=== PATIENT | female | born 1990 | race Caucasian/White ===

== ENCOUNTER 2016-12-17 19:02 | Emergency (ER) | payer SELFPAY ==
[2016-12-17 19:25] VITALS: BP 128/73; PULSE 95; TEMP 98.5; BMI 41.1
--- NOTE | 2016-12-17 20:01 | PDOC ---
History of Present Illness - General History Source: Patient Exam Limitations: No Limitations - History of Present Illness Initial Comments: 12/17/16 20:08 The patient is a 26 year old female with no significant past medical history who presents to the ED for multiple complaints. Patient reports 1 day of generalized numbness including intermittent numbness to her tongue that also feels dry. She reports pain and discomfort to her soles bilaterally. Patient has complaints of headache and dizziness. Denies any urinary/bowel incontinence , slurred speech, or facial droop. Patient reports generalized malaise and yesterday she had some generalized weakness while driving and had to tie puller. She reports a subjective fever 3 days ago that resolved on its own and sometimes has chills. States she has a family h/o of diabetes and was once told that her blood sugar was elevated, but never followed up. Denies chance of being . Denies any sick contacts or recent travels. The patient denies diaphoresis, cough, SOB, chest pain, and palpitations. The patient denies abdominal pain, nausea, vomiting, and diarrhea. Allergies: NKDA Social History: No alcohol, tobacco, or drug use reported. Past Surgical History: appendectomy PCP: None reported <Naty Aleman - Last Filed: 12/17/16 20:08> - General History Source: Patient <HannahSancho - Last Filed: 12/17/16 22:11> - General Chief Complaint: CVA/TIA Stated Complaint: DIZZINESS Time Seen by Provider: 12/17/16 19:55 Past History <Naty Aleman - Last Filed: 12/17/16 20:08> - Past Medical History Other medical history: family hx of DM (both sides) - Surgical History Appendectomy: Yes - Psycho/Social/Smoking Cessation Hx Suicidal Ideation: No Smoking History: Current every day smoker Information on smoking cessation initiated: No <Sancho Monetro - Last Filed: 12/17/16 22:11> - Past Medical History Allergies/Adverse Reactions: Allergies Allergy/AdvReac Type Severity Reaction Status Date / Time No Known Allergies Allergy Verified 12/17/16 19:19 Home Medications: Ambulatory Orders Levofloxacin [Levaquin -] 500 mg PO DAILY #7 tablet 12/17/16 Review of Systems - Review of Systems Able to Perform ROS?: Yes Comments:: 12/17/16 20:08 CONSTITUTIONAL: +fever, chills, generalized malaise, generalized weakness Absent: no fatigue EYES: Absent: visual changes ENT: +tongue numbness Absent: ear pain, no sore throat CARDIOVASCULAR: Absent: chest pain, no palpitations RESPIRATORY: Absent: cough, no SOB GI: Absent: abdominal pain, no nausea, no vomiting, no constipation, no diarrhea GENITOURINARY: Absent: dysuria, no frequency, no hematuria MUSCULOSKELETAL: +pain/discomfort to bilateral soles Absent: back pain, no arthralgia SKIN: Absent: rash NEURO: +headache, dizziness, generalized numbness <LoveNaty - Last Filed: 12/17/16 20:08> *Physical Exam - Vital Signs Last Vital Signs Temp Pulse Resp BP Pulse Ox 98.5 F 95 H 16 128/73 98 12/17/16 19:19 12/17/16 19:19 12/17/16 19:19 12/17/16 19:19 12/17/16 19:19 - Physical Exam Comments: 12/17/16 20:08 GENERAL: Well-appearing, well-nourished. No apparent distress. HEENT: Normocephalic, atraumatic. PERRL, EOM intact. CARDIOVASCULAR: Normal S1, S2. Regular rate and rhythm. PULMONARY: Clear to auscultation bilaterally. ABDOMEN: Soft, non-distended, non-tender. EXTREMITIES: Normal ROM in all four extremities. No gross deformities. SKIN: Warm, dry. No rash NEUROLOGICAL: No focal neurological deficits. <Naty Aleman - Last Filed: 12/17/16 20:08> - Vital Signs Last Vital Signs Temp Pulse Resp BP Pulse Ox 98.5 F 95 H 16 128/73 98 12/17/16 19:19 12/17/16 19:19 12/17/16 19:19 12/17/16 19:19 12/17/16 19:19 <Sancho Montero - Last Filed: 12/17/16 22:11> ED Treatment Course - LABORATORY CBC & Chemistry Diagram: 12/17/16 20:15 12/17/16 20:15 <Sancho Montero - Last Filed: 12/17/16 22:11> Medical Decision Making - Medical Decision Making 12/17/16 22:09 Dr. Montero: The scribe's documentation has been prepared under my direction and personally reviewed by me in its entirery. I confirm that the note above accurately reflects all work, treatment, procedures, and medical decision making performed by me.q <Sancho Montero - Last Filed: 12/17/16 22:11> *DC/Admit/Observation/Transfer - Attestations Scribe Attestion: 12/17/16 20:08 Documentation prepared by Naty Aleman, acting as medical instrument technician for Sancho Montero MD/DO. <Naty Aleman - Last Filed: 12/17/16 20:08> - Discharge Dispostion Admit: No <Sancho Montero - Last Filed: 12/17/16 22:11> Diagnosis at time of Disposition: Hyperglycemia, UTI (urinary tract infection) - Discharge Dispostion Disposition: HOME Condition at time of disposition: Stable - Prescriptions Prescriptions: Levofloxacin [Levaquin -] 500 mg PO DAILY #7 tablet - Referrals Referrals: Bella Silav MD [Staff Physician] - - Patient Instructions Printed Discharge Instructions: DI for Urinary Tract Infection (UTI), DI for Hyperglycemia -- Adult Additional Instructions: Please follow up with the doctor you have been referred to for evaluation for your suger
[2016-12-17 20:24] LABS: BASOPHIL 0.4 % (0-2.0); EOSINOPHIL 3.7 % (0-4.5); MCH 27.7 pg (25.7-33.7); MCHC 32.5 g/dl (32.0-36.0); MEAN CELL VOLUME 85.2 fl (80-96); MEAN PLT VOLUME 10.2 fl (7.5-11.1); NEUTROPHILS 64.1 % (42.8-82.8); PLATELET COUNT 230 K/MM3 (134-434); RDW 13.3 % (11.6-15.6); WHITE BLOOD COUNT 9.6 K/mm3 (4.0-10.0)
[2016-12-17 20:43] LABS: INR 1.02 (0.82-1.09); PROTHROMBIN TIME (PATIENT) 11.2 SEC (9.98-11.88)
[2016-12-17 21:10] LABS: URINE APPEARANCE CLOUDY; URINE BILIRUBIN NEGATIVE (NEGATIVE); URINE BLOOD NEGATIVE (NEGATIVE); URINE COLOR LTYELLOW; URINE GLUCOSE (UA) 3+ (NEGATIVE); URINE KETONE TRACE (NEGATIVE); URINE NITRITE NEGATIVE (NEGATIVE); URINE PROTEIN NEGATIVE (NEGATIVE); URINE UROBILINOGEN NEGATIVE E.U./dl (0.2-1.0)
[2016-12-17 21:15] LABS: ALBUMIN 3.6 g/dl (3.4-5.0); ANION GAP 9 (8-16); BILIRUBIN,TOTAL 0.3 mg/dL (0.2-1.0); CALCIUM 8.8 mg/dL (8.5-10.1); CO2 27 mmol/L (21-32); COCKROFT - GAULT 164.2115; CREATININE 0.9 mg/dL (0.55-1.02); MAGNESIUM 2.1 mg/dL (1.8-2.4); SGOT/AST 8 U/L (15-37); SGPT/ALT 23 U/L (12-78); URINE LEUK ESTERASE 1+ (NEGATIVE)
[2016-12-17 21:19] LABS: ALK PHOS 106 U/L (45-117); TROPONIN I < 0.02 ng/ml (0.00-0.05)
[2016-12-17 21:30] LABS: GLUCOSE,RANDOM 364 mg/dL (74-106)
[2016-12-17 21:39] LABS: URINE RBC 15 /hpf (0-3); URINE WBC 12 /hpf (3-5)
[2016-12-17] MEDS ORDERED: LEVOFLOXACIN 500 MG TABLET (FP) PO ONE (22:07)
[2016-12-17] MEDS ORDERED: LEVOFLOXACIN 500 MG TABLET (FP) ONE (22:20)
[2016-12-17 23:02] LABS: ACETONE SERUM NEGATIVE (NEGATIVE)
== END 2016-12-17 22:24 | disposition home or self-care (01) ==
LOC: JER 19:02
DX: N39.0 Urinary tract infection, site not specified (principal); R73.9 Hyperglycemia, unspecified
CPT/HCPCS: 36415; 80053; 81003; 81015; 82009; 82550; 83690; 83735; 84484; 84703; 85025; 85610; 99284-25